=== PATIENT | male | born 1940 | race Caucasian/White ===

== ENCOUNTER 2017-03-13 17:33 | Emergency (ER) | payer OTHER, MEDICARE ==
[~2017-03-13] VITALS: Ht 180.3 cm; Wt 100.7 kg
--- NOTE | 2017-03-13 18:04 | ED AMS/SEIZURE/WEAK/DIZZY ---
See Addendum History of Present Illness General Chief Complaint: Dizziness Stated Complaint: DIZZINESS/WEAKNESS OUTSIDE DOING HOUSE WORK Source: patient Exam Limitations: no limitations Vital Signs & Intake/Output Vital Signs & Intake/Output Vital Signs Date Time Temp Pulse Resp B/P B/P Pulse O2 O2 Flow FiO2 Mean Ox Delivery Rate 03/135 98.0 63 18 130/63 98 Room Air 03/13 2049 98.2 67 18 121/67 99 Room Air 03/13 1827 99 Room Air 03/13 1815 78 16 146/77 99 Room Air 03/13 1744 97.3 80 18 110/72 94 Room Air Allergies Coded Allergies: Penicillins (UNKNOWN 03/13/17) latex (SKIN IRRITATION 03/13/17) Reconcile Medications Aspirin (Ecpirin) 325 MG TABLET.DR 1 TAB PO DAILY HEART/BLOOD (Reported) Atorvastatin Calcium (Lipitor) 20 MG TABLET 1 TAB PO DAILY CHOLESTEROL ( Reported) Cyanocobalamin/FA/Pyridoxine (Folgard Rx Tablet) (Unknown Strength) TABLET ( Unknown Dose) PO DAILY SUPPLEMENT (Reported) Fenofibrate 160 MG TABLET 1 TAB PO DAILY CHOLESTEROL/TRIGLYCERIDES (Reported) Lisinopril 2.5 MG TABLET 1 TAB PO DAILY BP (Reported) Metformin HCl 500 MG TABLET 1 TAB PO QPM DM (Reported) Metoprolol Succinate 50 MG TAB.ER.24H 1 TAB PO DAILY HEART/BP (Reported) Omeprazole 40 MG CAPSULE.DR 1 CAP PO DAILY GI (Reported) Oxycodone HCl/Acetaminophen (Percocet 10-325 MG Tablet) 10 MG-325 MG TABLET 0.5 TAB PO PRN PAIN (Reported) Triamterene/Hydrochlorothiazid (Triamterene-Hctz 37.5-25 MG Cp) 37.5 MG-25 MG CAPSULE 1 CAP PO DAILY BP (Reported) Zolpidem Tartrate (Ambien) 10 MG TABLET 0.5 TAB PO QPM SLEEP (Reported) Triage Note: 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 PT BEGAN TO HAVE SOB DIZZINESS AND WEAKNESS. PT STATES HE IS TIRED ALL THE TIME. PT REPORTS HAVING A FUNNY FEELING IN HIS THROAT. Triage Nurses Notes Reviewed? yes Onset: Gradual Duration: getting worse Timing: recent history Severity: severe Severity Numbers: 7 HPI: Patient is a 76-year-old male with a past medical history of type II well- controlled diabetes, hypertension, hyperlipidemia CAD status post quadruple bypass who presents emergency room with concerns of a 2-3 week history of generalized weakness fatigue the past week he has been complaining of intermittent shortness of breath and dizziness symptoms. Patient has just returned from [place] 1 week ago. Patient states that he has no exertional shortness of breath or dyspnea on exertion or chest pain however he does state that his chest "feels different" Patient denies any fever chills arm pain and jaw pain nausea vomiting leg swelling abdominal pain, hemoptysis cough. (ALINE STEWART) Past History Travel History Traveled to [place] past 21 day No Medical History Any Pertinent Medical History? see below for history EENT: cataracts Cardiovascular: hypertension, hyperlipidemia, QUADRUPAL BYPASS Gastrointestinal: GERD Surgical History Surgical History: non-contributory Psychosocial History What is your primary language Lao Tobacco Use: Never used ETOH Use: denies use Illicit Drug Use: denies illicit drug use Family History Hx Contributory? No (ALINE STEWART) Review of Systems Review of Systems Constitutional: Reports: see HPI, chills, malaise, weakness. EENTM: Reports: no symptoms. Respiratory: Reports: see HPI, short of breath. Cardiovascular: Reports: see HPI. Denies: chest pain. GI: Reports: no symptoms. Genitourinary: Reports: no symptoms. Musculoskeletal: Reports: no symptoms. Skin: Reports: no symptoms. Neurological/Psychological: Reports: no symptoms. Hematologic/Endocrine: Reports: no symptoms. Immunologic/Allergic: Reports: no symptoms. All Other Systems: Reviewed and Negative (ALINE STEWART) Physical Exam Physical Exam General Appearance: no apparent distress, alert, comfortable Comments: Well-developed well-nourished person in no acute distress HEENT: Normal EENT exam, extraocular motion intact, no nystagmus. Pupils equally round and reactive to light and accommodation. Nose is atraumatic. External auditory canal and Tympanic membranes clear. Pharynx normal. No swelling or edema. Neck: Supple, no lymphadenopathy, normal range of motion without pain or tenderness Back: Nontender, no CVA tenderness. Cardiovascular: Regular rate and rhythms no murmurs rubs or gallops, normal JVP Respiratory: Chest nontender. No respiratory distress.breath sounds clear to auscultation bilaterally Abdomen: Soft, nontender nondistended, no appreciable organomegaly. Normal bowel sounds. No ascites Extremity: No edema, no calf tenderness to palpation, normal and equal pulses. Neuro: Alert oriented x3, motor sensory normal, Skin: No appreciable rash on exposed skin, skin is warm and dry. Psych: Mood and affect is normal, memory and judgment is normal. Core Measures ACS in differential dx? Yes CVA/TIA Diagnosis: No Severe Sepsis Present: No Septic Shock Present: No (ZEESHAN VENCES,ALINE) Progress Differential Diagnosis: alcohol intoxication, anemia, benign positional vertigo, CVA/stroke, dehydration, drug intoxication, encephalitis, electrolyte imbalance, GI bleed, hypoglycemia, hypoxia, intracranial Hem., intracranial mass/tumor, labrynthitis, meningitis, Meniere's disease, migraine TAPIA, multiple sclerosis, pneumonia, postural hypotension, presyncope, post-traumatic vertigo, sepsis, seizure disorder, subarachnoid Hem., UTI/pyelo, vertebrobasilar insuff Plan of Care: Orders Procedure Date/time Status TROPONIN LEVEL 03/13 2324 Active EKG 03/13 2324 Active URINALYSIS 03/13 2107 Complete D-DIMER 03/13 2003 Complete BUN & CREATININE 03/13 2003 Complete Add-on Test (ER Only) 03/13 181 Active THYROID STIMULATING HORMONE 03/13 175 Complete THYROXINE 03/13 175 Complete TROPONIN LEVEL 03/13 174 Complete COMPREHENSIVE METABOLIC PANEL 03/13 1748 Complete CBC WITHOUT DIFFERENTIAL 03/13 1748 Complete EKG 03/13 1737 Active Laboratory Tests 03/13/17 2330: Troponin I Pending 03/13/17 2110: Urine Color YEL, Urine Clarity CLEAR, Urine pH 6.0, Ur Specific [place] 1.020, Urine Protein NEG, Urine Ketones NEG, Urine Nitrite NEG, Urine Bilirubin NEG, Urine Urobilinogen 0.2, Ur Leukocyte Esterase NEG, Ur Microscopic SEDIMENT EXAMINED, Urine RBC RARE, Urine Hemoglobin TRACE-INTACT H, Urine Glucose NEG 03/13/17 2019: Estimated GFR 49 L, BUN/Creatinine Ratio 17.9, D-Dimer < 200 03/13/17 1840: D-Dimer Cancelled 03/13/17 1755: Anion Gap 15, Estimated GFR 39 L, BUN/Creatinine Ratio 15.9, Glucose 133 H, Calcium 9.5, Total Bilirubin 0.5, AST 37, ALT 51, Alkaline Phosphatase 51, Troponin I < 0.01, Total Protein 7.5, Albumin 4.6, Globulin 2.9, Albumin/ Globulin Ratio 1.6, TSH 1.200, Thyroxine (T4) 8.1, CBC w Diff NO MAN DIFF REQ, RBC 4.45 L, MCV 88.8, MCH 30.5, RDW 14.5, MPV 7.9, Gran % 60.8, Lymphocytes % 26.5, Monocytes % 7.6, Eosinophils % 4.5, Basophils % 0.6, Absolute Granulocytes 4.6, Absolute Lymphocytes 2.0, Absolute Monocytes 0.6, Absolute Eosinophils 0.3, Absolute Basophils 0, PUBS MCHC 34.4 Patient on initial examination was in no apparent distress Patient had negative orthostatic and had unremarkable physical exam findings Patient does admit to only eating one "big meal" a day which patient does have concerns of mild elevation of creatinine function and concerns of dehydration. IV fluid resuscitation currently is been administered. Patient also admits to a recent prescription administration the past 3 weeks of Ambien which can also cause patient's symptoms of dizziness and fatigue After IV fluid resuscitation was administered patient had improvement of his creatinine function After 3 attempts of establishing a d-dimer value the lab dictate that it was unattainable which I discussed with patient risks and benefits of pulmonary embolism evaluation and CT angiogram and he advised he wanted to receive an angiogram for evaluation of pulmonary embolism 03/13/2017 10:20:33 PM it was noted to me that prior to patient establishing a CT angiogram that the d-dimer was resulted to be negative and less than 200. We confirm this verbally with lab number resulted test and it is confirmed that patient has negative d-dimer which essentially rules out pulmonary embolism. Patient now will establish a chest x-ray Patient also ambulated with my supervision down hallway noted to be 95% room air no symptoms had occurred no dizziness no breast or distress or shortness of breath. DR PARKS ADVISED PT TO RECEIVE 2ND SET OF TROPONIN AND EKG PT WILL BE HANDED OF TO HIM (ALINE STEWART) Diagnostic Imaging: Viewed by Me: Radiology Read. Radiology Impression: no acute abnormality, no fracture Initial ED EKG: NORMAL SINUS RHYTHM NOTED AT 73 BPM Hand-Off Endorsed To: CHEMA PARKS DO ([facility]) Endorsed Time: 2326 Pending: labs Comments: PATIENT: DODIE ABDUL PRESENT AGE: 76 PATIENT ACCOUNT NO: [id number] : 41 LOCATION: [facility] ORDERING PHYSICIAN: ALINE VENCES SERVICE DATE: 03/13/17 EXAM TYPE: RAD - XRY-CHEST XRAY, PA AND LATERAL EXAMINATION: XR CHEST CLINICAL INFORMATION: Shortness of breath COMPARISON: None TECHNIQUE: 2 views of the chest were obtained. FINDINGS: Sternotomy wires present. The cardiac silhouette mediastinum and pulmonary vascularity are normal. Lungs are clear. Mild spondylosis of the dorsal spine. IMPRESSION: No acute disease DICTATED BY: CATRINA BANDA MD DATE/TIME DICTATED:03/13/172251 FIELD APPLICATIONS SPECIALIST:PHU (ZEESHAN VENCES,ALINE) Departure Departure Disposition: HOME OR SELF CARE Condition: Stable Clinical Impression Primary Impression: Dehydration Secondary Impressions: Dizziness, Elevated creatine kinase, Shortness of breath Referrals: JONAS KRUEGER,MARCELLA Shah (PCP/Family) Additional Instructions: As discussed continue to drink plain water for hydration and begin eating a well healthy balanced diet. Please consider discontinuing the Ambien as this may BE CAUSING YOUR symptoms. Please follow up and establish on Thursday [facility] practice to establish a doctor. If symptoms worsen return to emergency room. Continue previous medication as directed Departure Forms: Customer Survey General Discharge Information (ALINE STEWART) PA/SOAKER SODA WORKER Co-Sign Statement Statement: ED Attending supervision documentation- [x] I saw and evaluated the patient. I have also reviewed all the pertinent lab results and diagnostic results. I agree with the findings and the plan of care as documented in the PA's/SOAKER SODA WORKER's documentation. [] I have reviewed the ED Record and agree with the PA's/SOAKER SODA WORKER's documentation. [] Additions or exceptions (if any) to the PAs/SOAKER SODA WORKER's note and plan are summarized below: [] (CHEMA PARKS DO)
[2017-03-13 18:15] LABS: ABSOLUTE BASOPHIL COUNT 0 /CUMM (0.0-0.2); ABSOLUTE EOSINOPHIL COUNT 0.3 /CUMM (0.0-0.7); ABSOLUTE GRANULOCYTE CT 4.6 /CUMM (1.4-6.5); ABSOLUTE MONOCYTE COUNT 0.6 /CUMM (0.10-0.60); BASOPHIL % 0.6 % (0.0-2.0); EOSINOPHIL % 4.5 % (0-5); GRANULOCYTE % 60.8 % (42.2-75.2); HEMATOCRIT 39.5 % (42-52); MEAN CORPUSCULAR HGB 30.5 PG (27.0-31.0); MEAN CORPUSCULAR HGB CONC 34.4 G/DL (33.0-37.0); MEAN CORPUSCULAR VOLUME 88.8 FL (80.0-94.0); MEAN PLATELET VOLUME 7.9 FL (7.4-10.4); PLATELET COUNT 307 /CUMM (130-400); RBC DISTRIBUTION WIDTH 14.5 % (11.5-14.5); RED BLOOD CELL CT 4.45 /CUMM (4.70-6.10); WHITE BLOOD CELL COUNT 7.5 /CUMM (4.8-10.8)
[2017-03-13] MEDS ORDERED: METFORMIN HCL500 M3 PO (19:56)
[2017-03-13] MEDS ORDERED: FOLGARD RX TAB1 EACH PO (19:57)
[2017-03-13] MEDS ORDERED: LIPITOR20 M2 PO (19:57)
[2017-03-13] MEDS ORDERED: METOPROLOL SUCC50 M2 PO (19:57)
[2017-03-13] MEDS ORDERED: OMEPRAZOLE40 M1 PO (19:58)
[2017-03-13] MEDS ORDERED: FENOFIBRATE160 M1 PO (19:58)
[2017-03-13] MEDS ORDERED: TRIAMTERENE-HC1 EAC3 PO (19:58)
[2017-03-13] MEDS ORDERED: LISINOPRIL2.5 M1 PO (19:59)
[2017-03-13] MEDS ORDERED: AMBIEN10 M1 PO (19:59)
[2017-03-13] MEDS ORDERED: PERCOCET 10-321 EACH PO (20:00)
[2017-03-13] MEDS ORDERED: ECPIRIN325 MG PO (20:00)
[2017-03-13 22:45] VITALS: BP 130/63
--- NOTE | 2017-03-13 22:59 | RADIOLOGY REPORT ---
EXAMINATION: XR CHEST CLINICAL INFORMATION: Shortness of breath COMPARISON: None TECHNIQUE: 2 views of the chest were obtained. FINDINGS: Sternotomy wires present. The cardiac silhouette mediastinum and pulmonary vascularity are normal. Lungs are clear. Mild spondylosis of the dorsal spine. IMPRESSION: No acute disease
== END 2017-03-14 00:18 ==
LOC: ERH 17:33
PROVIDERS: Emergency Medicine
DX: E86.0 Dehydration (principal); R06.02 Shortness of breath; R42 Dizziness and giddiness; R77.8 Other specified abnormalities of plasma proteins; E11.9 Type 2 diabetes mellitus without complications; I10 Essential (primary) hypertension; E78.5 Hyperlipidemia, unspecified
CPT/HCPCS: 81001; 93005; 93010; 96360; J7040

== ENCOUNTER 2018-06-10 18:04 | Inpatient (IN) | payer OTHER, MEDICARE ==
[2018-06-08 08:57] LABS: ABSOLUTE BASOPHIL COUNT 0 /CUMM (0.0-0.2); ABSOLUTE EOSINOPHIL COUNT 0.2 /CUMM (0.0-0.7); ABSOLUTE GRANULOCYTE CT 3.6 /CUMM (1.4-6.5); ABSOLUTE LYMPH COUNT 1.8 /CUMM (1.2-3.4); ABSOLUTE MONOCYTE COUNT 0.5 /CUMM (0.10-0.60); BASOPHIL % 0.6 % (0.0-2.0); GRANULOCYTE % 58.4 % (42.2-75.2); HEMATOCRIT 41.7 % (42-52); MEAN CORPUSCULAR HGB 29.7 PG (27.0-31.0); MEAN CORPUSCULAR HGB CONC 33.5 G/DL (33.0-37.0); MEAN CORPUSCULAR VOLUME 88.5 FL (80.0-94.0); MEAN PLATELET VOLUME 7.4 FL (7.4-10.4); PLATELET COUNT 302 /CUMM (130-400); RBC DISTRIBUTION WIDTH 13.9 % (11.5-14.5); RED BLOOD CELL CT 4.71 /CUMM (4.70-6.10); WHITE BLOOD CELL COUNT 6.2 /CUMM (4.8-10.8)
[~2018-06-10] VITALS: Ht 180.3 cm; Wt 102.1 kg
[~2018-06-10 18:04] MED LIST: AMBIEN10 M1 PO; ECPIRIN325 MG PO; FENOFIBRATE160 M1 PO; FOLGARD RX TAB1 EACH PO; LIPITOR20 M2 PO; LISINOPRIL2.5 M1 PO; METFORMIN HCL500 M3 PO; METOPROLOL SUCC50 M2 PO; OMEPRAZOLE40 M1 PO; PERCOCET 10-321 EACH PO; TRIAMTERENE-HC1 EAC3 PO
[2018-06-10 18:47] LABS: ABSOLUTE BASOPHIL COUNT 0 /CUMM (0.0-0.2); ABSOLUTE EOSINOPHIL COUNT 0.2 /CUMM (0.0-0.7); ABSOLUTE GRANULOCYTE CT 3.5 /CUMM (1.4-6.5); ABSOLUTE LYMPH COUNT 2.2 /CUMM (1.2-3.4); ABSOLUTE MONOCYTE COUNT 0.6 /CUMM (0.10-0.60); BASOPHIL % 0.6 % (0.0-2.0); EOSINOPHIL % 3.4 % (0-5); HEMATOCRIT 43.7 % (42-52); MEAN CORPUSCULAR HGB 29.6 PG (27.0-31.0); MEAN CORPUSCULAR HGB CONC 33.7 G/DL (33.0-37.0); MEAN PLATELET VOLUME 7.3 FL (7.4-10.4); PLATELET COUNT 338 /CUMM (130-400); RBC DISTRIBUTION WIDTH 14.3 % (11.5-14.5); RED BLOOD CELL CT 4.97 /CUMM (4.70-6.10); WHITE BLOOD CELL COUNT 6.5 /CUMM (4.8-10.8)
[2018-06-10] MEDS ORDERED: ASPIRIN EC81 M1 PO (18:53)
[2018-06-10] MEDS ORDERED: METFORMIN HCL500 M2 PO (18:54)
[2018-06-10] MEDS ORDERED: PRINIVIL5 M1 PO (18:54)
[2018-06-10] MEDS ORDERED: FISH OIL 1,001000 MG PO (18:55)
--- NOTE | 2018-06-10 19:27 | ED GI/GU/ABDOMINAL COMPLAINT ---
History of Present Illness General Chief Complaint: Nausea, Vomiting, Diarrhea Stated Complaint: "I'VE HAD +D FOR MONTHS" Source: patient, family, old records Exam Limitations: no limitations Vital Signs & Intake/Output Vital Signs & Intake/Output Vital Signs Date Time Temp Pulse Resp B/P B/P Pulse O2 O2 Flow FiO2 Mean Ox Delivery Rate 06/11 0640 97.7 62 20 132/68 96 06/11 0007 97.6 62 20 122/74 100 06/10 2217 97.9 64 20 115/63 97 Room Air 06/10 2027 97.9 66 20 113/56 95 Room Air 06/10 1843 98 Room Air 06/10 1822 99.0 84 18 97 Room Air Room Air ED Intake and Output 06/11 0000 06/10 1200 Intake Total 0 Output Total Balance 0 Intake, Oral 0 Patient 225 lb Weight Weight Bed scale Measurement Method Allergies Coded Allergies: Penicillins (UNKNOWN 03/13/17) latex (SKIN IRRITATION 03/13/17) Reconcile Medications Atorvastatin Calcium (Lipitor) 20 MG TABLET 1 TAB PO DAILY CHOLESTEROL ( Reported) Cyanocobalamin/FA/Pyridoxine (Folgard Rx Tablet) (Unknown Strength) TABLET ( Unknown Dose) PO DAILY SUPPLEMENT (Reported) Fenofibrate 160 MG TABLET 1 TAB PO DAILY CHOLESTEROL/TRIGLYCERIDES (Reported) Lisinopril (Prinivil) 5 MG TABLET 1 TAB PO DAILY BP (Reported) Metformin HCl (Metformin HCl ER) 500 MG TAB.ER.24 1 TAB PO BID DM (Reported) Metoprolol Succinate 50 MG TAB.ER.24H 1 TAB PO DAILY HEART/BP (Reported) [place]-3/Dha/Epa/Fish Oil (Fish Oil 1,000 MG Softgel) (Unknown Strength) CAPSULE (Unknown Dose) PO DAILY SUPPLEMENT (Reported) Omeprazole 40 MG CAPSULE.DR 1 CAP PO DAILY GI (Reported) Oxycodone HCl/Acetaminophen (Percocet 10-325 MG Tablet) 10 MG-325 MG TABLET 0.5 TAB PO PRN PAIN (Reported) Zolpidem Tartrate (Ambien) 10 MG TABLET 0.5 TAB PO QPM SLEEP (Reported) Triage Note: PT TO ED WITH C/O DIARRHEA FOR MONTHS, SEEN PMD FOR SYMPTOMS, DENIES N/V. Triage Nurses Notes Reviewed? yes Onset: 2 months Duration: continues in ED, getting worse Timing: recent history Quality/Severity: cramping, fullness, moderate Location: generalized abdomen Radiation: no radiation Activities at Onset: rest Prior Abdominal Problems: none Past Sexual History: Unobtainable at this time Modifying Factors: Worsens With: eating, palpation. Associated Symptoms: abdominal pain, diarrhea, fatigue, loss of appetite, weakness HPI: Several months prior to admission patient complains of frequent loose watery stool anorexia nausea increasing abdominal girth with pain. Pain is described as achy moderate to severe worse with eating palpation nonradiating constant. He denies fever chills vomiting chest pain cough shortness of breath headache dysuria rash bleeding. Past History Travel History Traveled to [place] past 21 day No Medical History Any Pertinent Medical History? see below for history Neurological: migraine EENT: cataracts Cardiovascular: hypertension, hyperlipidemia, QUADRUPAL BYPASS Respiratory: NONE Gastrointestinal: GERD Hepatic: NONE Renal: NONE Musculoskeletal: NONE Psychiatric: NONE Endocrine: diabetes Blood Disorders: anemia Cancer(s): NONE PHYSICAL METEOROLOGIST/Reproductive: NONE Surgical History Surgical History: non-contributory Psychosocial History What is your primary language Latvian Tobacco Use: Never used ETOH Use: denies use Illicit Drug Use: denies illicit drug use Family History Hx Contributory? No Review of Systems Review of Systems Constitutional: Reports: see HPI, malaise, weakness. EENTM: Reports: no symptoms. Respiratory: Reports: no symptoms. Cardiovascular: Reports: no symptoms. GI: Reports: see HPI, abdominal pain, bloating, diarrhea, distention, nausea. Genitourinary: Reports: no symptoms. Musculoskeletal: Reports: no symptoms. Skin: Reports: no symptoms. Neurological/Psychological: Reports: no symptoms. Hematologic/Endocrine: Reports: no symptoms. Immunologic/Allergic: Reports: no symptoms. All Other Systems: Reviewed and Negative Physical Exam Physical Exam General Appearance: well developed/nourished, alert, awake, moderate distress, obese Head: atraumatic, normal appearance Eyes: Bilateral: normal appearance, PERRL, EOMI, normal inspection. Ears, Nose, Throat, Mouth: hearing grossly normal, dry mucous membranes Neck: normal inspection, supple, full range of motion, normal alignment Respiratory: normal breath sounds, chest non-tender, no respiratory distress, quiet respiration, lungs clear Cardiovascular: regular rate/rhythm, normal peripheral pulses, norml femoral pulses equa Peripheral Pulses: 4+ carotid (R), 4+ carotid (L) Gastrointestinal: normal bowel sounds, soft, no organomegaly, distention, tenderness Rectal: normal inspection, normal rectal tone, no stool Male Genitals: normal genitalia Back: normal inspection, normal range of motion, no vertebral tenderness Extremities: normal range of motion, no ligament instability Neurologic/Psych: no motor/sensory deficits, awake, alert, oriented x 3, normal gait, normal mood/affect, production coordinator II-XII nml as tested Skin: intact, normal color, warm/dry Core Measures ACS in differential dx? No Sepsis Present: No Sepsis Focused Exam Completed? No Progress Differential Diagnosis: biliary colic, bowel obstruction, diverticulitis, gastritis, pancreatitis, PUD/GERD, SBO, UTI/pyelo Plan of Care: Orders Procedure Date/time Status Regular Diet 06/11 B Active PROTHROMBIN TIME 06/11 0600 Active CBC WITHOUT DIFFERENTIAL 06/11 0600 Active BASIC ELECTROLYTES PLUS BUN&CR 06/11 0600 Active Code Status 06/11 0241 Active URINALYSIS 06/10 2348 Active Weight 06/10 2335 Active Vital Signs 06/10 2335 Complete Teach/Educate 06/10 2335 Active Pain Treatment and Response 06/10 2335 Active Nutritional Intake, Monitor 06/10 2335 Active Isolation 06/10 2335 Active Intake & Output 06/10 2335 Complete Patient Care Conference 06/10 2335 Active Activity/Ambulation 06/10 2335 Complete Pathway - chart 06/10 2222 Active House Staff 06/10 2222 Active Patient Data 06/10 2222 Active FingerStick- Glucose 06/10 2222 Active Code Status 06/10 2222 Complete Patient Data 06/10 2152 Active OXYGEN SETUP (GEN) 06/10 214 Active Saline Lock 06/10 2143 Active Admit to inpatient 06/10 2143 Active Vital Signs 06/10 2143 Active Activity/Ambulation 06/10 2143 Complete Code Status 06/10 2143 Complete LACTIC ACID 06/10 2123 Complete Intake & Output 06/10 1843 Active TROPONIN LEVEL 06/10 1830 Complete PHOSPHORUS 06/10 1830 Complete MAGNESIUM 06/10 1830 Complete EKG 06/10 1824 Active CULTURE,STOOL 06/10 1823 Active OVA AND PARASITE ANTIGENS 06/10 182 Active C.DIFFICILE 06/10 1823 Active LIPASE 06/10 1823 Complete LACTIC ACID 06/10 1823 Complete COMPREHENSIVE METABOLIC PANEL 06/10 1823 Complete CBC WITHOUT DIFFERENTIAL 06/10 1823 Complete AMYLASE 06/10 1823 Complete Lab Add-on Test 06/10 UNK Active VTE Mechanical Prophylaxis 06/10 UNK Active Vital Signs 06/10 UNK Complete Activity/Ambulation 06/10 UNK Active Current Medications Sig/Abdi Start time Last Medication Dose Stop Time Status Admin Atorvastatin Calcium 20 MG 1700 06/11 1700 AC (Lipitor) Fenofibrate 145 MG DAILY 06/11 09 AC (Tricor) Lisinopril 5 MG DAILY 06/11 09 AC (Prinivil) Metoprolol Succinate 50 MG DAILY 06/11 09 AC (Toprol Xl) Omeprazole 40 MG DAILY AC 06/11 07 AC (Prilosec) Heparin Sodium 5,000 UNIT Q8 06/11 06 AC (Porcine) Trimethobenzamide HCl 200 MG TID PRN 06/11 0430 AC (Tigan) Acetaminophen 650 MG Q6P PRN 06/10 2230 AC (Tylenol) Insulin Aspart 0 TIDAC 06/10 223 AC (NovoLOG) Oxycodone/ 2 TAB Q6P PRN 06/10 2230 AC Acetaminophen (Percocet) Sodium Chloride 1,000 ML Q13H 06/10 2230 AC 06/11 (Normal Saline 0.9%) 06/11 1129 0100 Zolpidem Tartrate 5 MG QPM 06/10 2230 AC 06/11 (Ambien) 0113 Laboratory Tests 06/10/18 2131: Lactic Acid 1.6 06/10/18 1830: Anion Gap 14, Estimated GFR 59 L, BUN/Creatinine Ratio 20.0, Glucose 122 H, Lactic Acid 2.1, Calcium 10.0, Phosphorus 3.4, Magnesium 1.6, Total Bilirubin 0.3, AST 47, ALT 49, Alkaline Phosphatase 54, Troponin I < 0.01, Total Protein 8.0, Albumin 4.9, Globulin 3.1, Albumin/Globulin Ratio 1.6, Amylase 75, Lipase 204, CBC w Diff NO MAN DIFF REQ, RBC 4.97, MCV 88.0, MCH 29.6, MCHC 33.7, RDW 14.3, MPV 7.3 L, Gran % 53.0, Lymphocytes % 33.9, Monocytes % 9.1, Eosinophils % 3.4, Basophils % 0.6, Absolute Granulocytes 3.5, Absolute Lymphocytes 2.2, Absolute Monocytes 0.6, Absolute Eosinophils 0.2, Absolute Basophils 0 06/10/184: Troponin I Cancelled Microbiology 06/10 1823 STOOL: Cryptosporidium Antigen - COLB 06/10 1823 STOOL: Giardia Antigen (BALBINA) - COLB 06/10 1823 STOOL: Clostridium difficile Toxin A & B - COLB 06/10 1823 STOOL: Stool Culture - COLB Diagnostic Imaging: Viewed by Me: CT Scan. Discussed w/RAD: CT Scan. Radiology Impression: 1. Large enhancing mass involving the right kidney. This is highly suspicious for neoplasm. The mass appears to be invading into the right renal vein at the hilum. 2. Nonobstructive 1 mm stone lower pole of left kidney. 3. Diffuse fatty change of liver with mild hepatomegaly. Initial ED EKG: normal axis, normal intervals, normal p-waves, normal QRS complex, normal sinus rhythm, no ST T wave changes Prior EKG: unchanged Rhythm Strip: normal sinus rhythm Departure Departure Disposition: STILL A PATIENT Condition: Stable Clinical Impression Primary Impression: Renal cell cancer Referrals: Mattie KRUEGER,Alex Shah (PCP/Family) Departure Forms: Customer Survey General Discharge Information Admission Note Spoke With: Abraham Richardson MD Documentation of Exam: Documentation of any treatments & extenuating circumstances including Concerns Regarding Discharge (functional status, medication knowledge or non-compliance, living conditions, etc.) that warrant an admission rather than observation: Intervention radiology biopsy of renal cell mass oncology evaluation medication adjustment serial lab exam GI evaluation urology evaluation continuing care discharge planning.
--- NOTE | 2018-06-10 20:54 | CT SCAN REPORT ---
EXAMINATION: CT ABDOMEN AND PELVIS WITH CONTRAST CLINICAL INFORMATION: Abdominal pain. Diarrhea for 2 months. COMPARISON: Renal ultrasound 05/26/2017. CTA of the chest 03/13/2017 TECHNIQUE: Multidetector volumetric imaging was performed of the abdomen and pelvis following IV administration of 95 mL of Optiray 320 intravenous contrast. Sagittal and coronal reformatted images were obtained on the technologist's workstation. DLP: 835.83 mGy-cm FINDINGS: LUNG BASES: The visualized lung bases are unremarkable. Status post median sternotomy. LIVER, GALLBLADDER, AND BILIARY TREE: There is low attenuation of liver parenchyma due to fatty change. There is no focal liver lesion. There is no intrapelvic bile duct dilatation. The right lobe of liver measures 20 cm superior inferior, mild hepatomegaly. There are a few scattered calcified granuloma within the liver. The gallbladder is contracted. There is no bile duct dilatation. PANCREAS: Unremarkable. SPLEEN: There are multiple small calcified granuloma within the spleen. There is a small splenule at the anterior inferior splenic margin. ADRENAL GLANDS: Unremarkable. KIDNEYS AND URETERS: Right kidney: There is a mass in the right kidney. The mass involves the mid lower pole cortex and is extending into the joe. It is extending into the right renal vein. This mass is enhancing. The mass is highly suspicious of a neoplasm. It measures 6.9 x 3 x 4.7 cm of size. Left kidney: There is a nonobstructive stone in the lower pole of the left kidney measuring 1 x 0.6 x 0.5 cm. There is no ureteral stone. There is no hydronephrosis. BLADDER: Unremarkable. GASTROINTESTINAL TRACT: There are scattered diverticula sigmoid and left colon but there is no diverticulitis. There is no acute change of the bowel. No bowel obstruction. No bowel wall thickening or edema. There is a moderate volume of stool scattered in the colon. The appendix is not visualized. There is no inflammatory change of the mesentery. Small bowel loops are unremarkable. ABDOMINAL WALL: No significant hernia is appreciated. LYMPH NODES: Normal. VASCULAR: The right renal mass is invading into the right renal vein at the hilum, coronal image 62. There is scattered vascular calcifications of aorta and iliac arteries without aneurysm. PELVIC VISCERA: Prostate measures 4 cm transverse. OSSEOUS STRUCTURES: There is degenerative spondylosis of the spine with multilevel disc height narrowing and plate spurring and facet joint arthrosis. IMPRESSION: 1. Large enhancing mass involving the right kidney. This is highly suspicious for neoplasm. The mass appears to be invading into the right renal vein at the hilum. 2. Nonobstructive 1 mm stone lower pole of left kidney. 3. Diffuse fatty change of liver with mild hepatomegaly. This critical result was discussed with Dr. Bradshaw on 06/10/2018, 8:15 PM and it was ascertained that the content and urgency of the report was understood at the time of direct communication.
--- NOTE | 2018-06-10 21:58 | History & Physical ---
Deborah Ceballos 06/10/18 1813: General Information and HPI MD Statement: I have seen and personally examined DODIE ABDUL and documented this H&P. The patient is a 77 year old M who presented with a patient stated chief complaint of []. 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 He states the diarrhea is progressive in nature and he has about 2 episodes of non bloody diarrhea per day. He has associated nausea but denies vomiting. He has noticed decreased appetite with about 3-4lbs of weightloss. He also has increasing fatigue and abdominal pressure. Denies hematuria, chest pain, syncope, dizziness, SOB. He states he has had changes in urinary stream over the past year and saw a Financial Institution President in [place]: Dr. Barrett. Patient receives care from the following doctors: Pain management: Dr. Moore Cardiology: Dr. Foster PCP: Dr. Lancaster Of Note: patient underwent 'platelet phoresis one week ago under the direction of his pain management doctor. He was told he is not to have NSAIDS after this procedure. Allergies/Medications Home Med list Atorvastatin Calcium (Lipitor) 20 MG TABLET 1 TAB PO DAILY CHOLESTEROL ( Reported) Cyanocobalamin/FA/Pyridoxine (Folgard Rx Tablet) (Unknown Strength) TABLET ( Unknown Dose) PO DAILY SUPPLEMENT (Reported) Fenofibrate 160 MG TABLET 1 TAB PO DAILY CHOLESTEROL/TRIGLYCERIDES (Reported) Lisinopril (Prinivil) 5 MG TABLET 1 TAB PO DAILY BP (Reported) Metformin HCl (Metformin HCl ER) 500 MG TAB.ER.24 1 TAB PO BID DM (Reported) Metoprolol Succinate 50 MG TAB.ER.24H 1 TAB PO DAILY HEART/BP (Reported) [place]-3/Dha/Epa/Fish Oil (Fish Oil 1,000 MG Softgel) (Unknown Strength) CAPSULE (Unknown Dose) PO DAILY SUPPLEMENT (Reported) Omeprazole 40 MG CAPSULE.DR 1 CAP PO DAILY GI (Reported) Oxycodone HCl/Acetaminophen (Percocet 10-325 MG Tablet) 10 MG-325 MG TABLET 0.5 TAB PO PRN PAIN (Reported) Zolpidem Tartrate (Ambien) 10 MG TABLET 0.5 TAB PO QPM SLEEP (Reported) Past History Travel History Traveled to [place] past 21 day No Medical History Neurological: migraine EENT: cataracts Cardiovascular: hypertension, hyperlipidemia, QUADRUPAL BYPASS Respiratory: NONE Gastrointestinal: GERD Hepatic: NONE Renal: NONE Musculoskeletal: NONE Psychiatric: NONE Endocrine: diabetes Blood Disorders: anemia Cancer(s): NONE PROCUREMENT PROFESSIONAL/Reproductive: NONE Surgical History Surgical History: non-contributory Past Family/Social History Psychosocial History Where do you live? Home Who Do You Live With? spouse Services at Home: None Primary Language: Luxembourgish Smoking Status: Former Smoker (quit 1964) ETOH Use: denies use Illicit Drug Use: denies illicit drug use Sexual History Past Sexual History Unobtainable at this time Review of Systems Review of Systems Constitutional: Reports: unexplained weight loss (fatigue). EENTM: Reports: no symptoms. Cardiovascular: Reports: no symptoms. Respiratory: Reports: no symptoms. GI: Reports: diarrhea (abdominal pressure), nausea. Denies: vomiting. Genitourinary: Reports: no symptoms. Musculoskeletal: Reports: neck pain (chronic neck pain). Skin: Reports: no symptoms. Neurological/Psychological: Reports: no symptoms. Exam & Diagnostic Data Last 24 Hrs of Vital Signs/I&O Vital Signs Date Time Temp Pulse Resp B/P B/P Pulse O2 O2 Flow FiO2 Mean Ox Delivery Rate 06/11 0007 97.6 62 20 122/74 100 06/10 2217 97.9 64 20 115/63 97 Room Air 06/10 2027 97.9 66 20 113/56 95 Room Air 06/10 1843 98 Room Air 06/10 1822 99.0 84 18 97 Room Air Room Air Intake & Output 06/11 0800 06/11 0000 06/10 1600 Intake Total 0 Output Total Balance 0 Intake, Oral 0 Patient 225 lb Weight Weight Bed scale Measurement Method Physical Exam General Appearance Alert, Oriented X3, Cooperative, No Acute Distress Skin No Rashes Skin Temp/Moisture Exam: Warm/Dry HEENT Atraumatic, PERRLA Neck Supple Cardiovascular Regular Rate, Normal S1, Normal S2 Lungs Clear to Auscultation Abdomen Normal Bowel Sounds, Soft, No Tenderness, ventral hernia; appendectomy scar well healed Extremities No Cyanosis, No Edema, Normal Pulses Assessment/Plan Assessment: 77 year old male with PMH DM, HLD, HTN, 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 He states the diarrhea is progressive in nature and he has about 2 episodes of non bloody diarrhea per day. He has associated nausea but denies vomiting. He has noticed decreased appetite with about 3-4lbs of weightloss. He also has increasing fatigue and abdominal pressure. Denies hematuria, chest pain, syncope, dizziness, SOB. ED workup significant for CT abd/pelv: right renal mass with invasion of right renal vein. Patient to be admitted to the general medicine service for further care of the following: Problem List: 1. Dehydration 2. Diarrhea 3. Right renal mass Admission Data: VS T99.0 P84 RR18 BP113/56 Sat 97%RA Lab WBC 6.5 H/H 14.7/43.7 Plt 338 Na 138, K4.4 BUN/Cr 24/1.2. LFT's normal. Trop Negative Stool Ova/parasite and C-diff antigen pending CTabd/pelv: IMPRESSION: 1. Large enhancing mass involving the right kidney. This is highly suspicious for neoplasm. The mass appears to be invading into the right renal vein at the hilum. 2. Nonobstructive 1 mm stone lower pole of left kidney. 3. Diffuse fatty change of liver with mild hepatomegaly. #Dehydration-likely 2/2 chronic diarrhea and decreased appetite -IVF: NS @75cc/hr -monitor lytes #Diarrhea -stool cultures and antigens for C-diff pending -IVF hydration and monitor lytes including Na, K, Mg, and Phos #Right Renal Mass -Nephrology consult for further work up; place in AM #Chronic medical problems -continue home meds except Metformin-->sliding scale insulin -Patient takes ambien for sleep at night and will need this medication as he is a bit overwhelmed with news of CT findings DVT Prophylaxis: Heparin 5000units sub cu/ALPS/Ambulation Code Status: DNR/DNI As Ranked By This Provider Problem List: 1. Diarrhea 2. Renal mass, right Core Measures/Misc (07/12) Acute Coronary Syndrome ACS Diagnosis: No Congestive Heart Failure Congestive Heart Failure Diagnosis No Cerebrovascular Accident CVA/TIA Diagnosis: No VTE (View Protocol) VTE Risk Factors Age>40 No Mechanical VTE Prophylaxis d/t N/A MechProphylax Ordered No VTE Pharm Prophylaxis d/t NA PharmProphylax ordered Sepsis (View protocol) Sepsis Present: No If YES complete Sepsis Event Note If YES complete Sepsis Event Note Flavio Wolfe 06/11/18 0050: Core Measures/Misc (07/12) Sepsis (View protocol) If YES complete Sepsis Event Note If YES complete Sepsis Event Note Resident Review Statement Resident Statement: examined this patient, discussed with internet architect, agreed with internet architect, discussed with family, reviewed EMR data (avail), discussed with nursing , discussed with case mgmt, reviewed images, amended to note Other Findings: This is a 77-year-old male with past medical history significant for hypertension, hyperlipidemia, diabetes mellitus, GERD, insomnia, quadruple bypass in 2000, chronic neck pain status post plateletpheresis presented to the emergency room with chief complaint of abdominal pain, diarrhea for 2 months Patient reports ongoing abdominal pain associated with diarrhea for last 2 months. He denies any blood in stools. Denies recent use of antibiotics. Denies any sick contact or travel history. He reports being nauseous, however denies any vomiting. He stated that his abdominal pain was very mild with pressure-like sensation. Denied any fever, chills, flank pain, blood in urine. He also reported ongoing fatigue for last couple of months associated with 4 pound weight loss. He was seen by PCP last week, arranging for CAT scan abdomen. He quit smoking in 1964. Denied alcohol abuse, illicit drug abuse. Denied any upper respiratory tract symptoms, fever, chills, cough, chest pain, palpitations , short of breath, change in bladder or bowel habits. Vitals afebrile, heart rate 84, respiratory rate 18, blood pressure 113/56, saturating at 95 on ra. Exam as above Pertinent labs WBC 6.5, hemoglobin 14 and hematocrit 43, platelets 328. Sodium 138, potassium 4.4, BUN 24, creatinine 1.2 Patient received sodium chloride 1 L in the emergency room. EKG shows sinus rhythm, rate 71, no acute ST-T wave changes. CAT scan abdomen and pelvis 1. Large enhancing mass involving the right kidney. This is highly suspicious for neoplasm. The mass appears to be invading into the right renal vein at the hilum. 2. Nonobstructive 1 mm stone lower pole of left kidney. 3. Diffuse fatty change of liver with mild hepatomegaly. 1. Right-sided renal mass Patient presented with ongoing abdomen pain associated with the diarrhea, fatigue, weight loss for 2 months. He was seen by PCP as an outpatient, planning to get CAT scan abdomen. However given worsening symptoms he presented to the ER. CAT scan abdomen and pelvis was done which showed large enhancing mass involving the right kidney, invading into the right renal vein at hilum. Mass was 6.9x 3x 4.7 cm size. * Admitted to [facility] * Monitor vitals every shift * Monitor hemoglobin closely. Denies any gross hematuria * Follow-up urine analysis * Nephro consult in the a.m. * Please arrange for renal biopsy after talking to interventional radiologist in the a.m. * Conservative pain management 2. Prerenal azotemia Patient was found to have elevated BUN most likely from dehydration and diarrhea. * Lactic acid in normal limits * Continue fluids Chronic medical conditions Hyperlipidemia continue Lipitor 20 daily Hypertension continue lisinopril 5 mg and metoprolol succinate 50 daily Diabetes mellitus continue Accu-Cheks and NovoLog sliding scale. Hold metformin. GERD continue omeprazole 40 daily Insomnia continue zolpidem 5 mg daily Patient is full code Regular diet DVT prophylaxis subcu heparin Pain pathway ordered Tylenol and Percocet Debra [place] 06/11/18 2431: General Information and [facility] MD Statement: I have seen and personally examined FRANKODODIE and documented this H&P. The patient is a 77 year old M who presented with a patient stated chief complaint of [diarrhea and abdominal pain]. Source of Information: patient Allergies/Medications Allergies: Coded Allergies: Penicillins (UNKNOWN 03/13/17) latex (SKIN IRRITATION 03/13/17) Past History Medical History Neurological: migraine EENT: cataracts Cardiovascular: hypertension, hyperlipidemia Gastrointestinal: GERD Endocrine: diabetes Blood Disorders: anemia Past Family/Social History Psychosocial History Smoking Status: Former Smoker ETOH Use: denies use Illicit Drug Use: denies illicit drug use Review of Systems Review of Systems Constitutional: Reports: see HPI. Exam & Diagnostic Data Last 24 Hrs of Vital Signs/I&O Vital Signs Date Time Temp Pulse Resp B/P B/P Pulse O2 O2 Flow FiO2 Mean Ox Delivery Rate 06/11 0007 97.6 62 20 122/74 100 06/10 2217 97.9 64 20 115/63 97 Room Air 06/107 97.9 66 20 113/56 95 Room Air 06/10 1843 98 Room Air 06/10 1822 99.0 84 18 97 Room Air Room Air Intake & Output 06/11 0800 06/11 0000 06/10 1600 Intake Total 0 Output Total Balance 0 Intake, Oral 0 Patient 225 lb Weight Weight Bed scale Measurement Method Physical Exam General Appearance Alert, Oriented X3, Cooperative, No Acute Distress Skin No Rashes, No Breakdown Skin Temp/Moisture Exam: Warm/Dry Sepsis Skin Exam (color): Normal for Ethnicity HEENT Atraumatic, PERRLA, EOMI Neck Supple Lymphatic Axillary nl, Cervical nl Cardiovascular Regular Rate, Normal S1, Normal S2 Lungs Clear to Auscultation, Normal Air Movement Abdomen Normal Bowel Sounds, Soft, No Tenderness, ventral hernia; appendectomy scar well healed Neurological Normal Speech Extremities No Clubbing, No Cyanosis, No Edema, Normal Pulses Sepsis Peripheral Pulse Location: Dorsalis Pedis Sepsis Peripheral Pulse Exam: Normal Sepsis Cap Refill Exam: <2 Sec Last 24 Hrs of Labs/Randall: Laboratory Tests 06/10/182130: Lactic Acid 1.6 06/10/18 1830: Anion Gap 14, Estimated GFR 59 L, BUN/Creatinine Ratio 20.0, Glucose 122 H, Lactic Acid 2.1, Calcium 10.0, Phosphorus 3.4, Magnesium 1.6, Total Bilirubin 0.3, AST 47, ALT 49, Alkaline Phosphatase 54, Troponin I < 0.01, Total Protein 8.0, Albumin 4.9, Globulin 3.1, Albumin/Globulin Ratio 1.6, Amylase 75, Lipase 204, CBC w Diff NO MAN DIFF REQ, RBC 4.97, MCV 88.0, MCH 29.6, MCHC 33.7, RDW 14.3, MPV 7.3 L, Gran % 53.0, Lymphocytes % 33.9, Monocytes % 9.1, Eosinophils % 3.4, Basophils % 0.6, Absolute Granulocytes 3.5, Absolute Lymphocytes 2.2, Absolute Monocytes 0.6, Absolute Eosinophils 0.2, Absolute Basophils 0 06/10/18 1824: Troponin I Cancelled Microbiology 06/10 1823 STOOL: Cryptosporidium Antigen - ORD 06/10 1823 STOOL: Giardia Antigen (RANDALL) - ORD 06/10 1823 STOOL: Clostridium difficile Toxin A & B - ORD 06/10 1823 STOOL: Stool Culture - ORD Core Measures/Misc (07/12) Sepsis (View protocol) If YES complete Sepsis Event Note If YES complete Sepsis Event Note Attending MD Review Statement Attending Statement Attending MD Statement: examined this patient, discuss w/resident/PA/EVENT SALES ASSISTANT, agreed w/resident/PA/EVENT SALES ASSISTANT, reviewed EMR data (avail) Attending Assessment/Plan: This patient is a 77-year-old male with a significant past medical history for hypertension, hyperlipidemia, diabetes mellitus, GERD, insomnia, quadruple bypass in 2000, chronic neck pain status post platelet pheresis presented to the emergency room with chief complaint of abdominal pain, diarrhea for 2 months. Patient reports ongoing abdominal pain associated with diarrhea for last 2 months. He stated that his abdominal pain was very mild with pressure-like sensation. Upon evaluation in the emergency department the patient was noted to be afebrile, BUN 59, initial lactic acid 2.1 dropped to 1.6, CT ABD/PELV - Large enhancing mass involving the right kidney. This is highly suspicious for neoplasm. The mass appears to be invading into the right renal vein at the hilum. The patient is admitted to general medicine for new right kidney mass, abdominal pain and diarrhea. Nephrology consult and gentle hydration. FULL CODE.
[2018-06-11 00:07] VITALS: BP 122/74
[2018-06-11 06:40] VITALS: BP 132/68
--- NOTE | 2018-06-11 06:57 | PN- Housestaff ---
Gregg Gamboa 06/11/18 0657: Subjective Follow-up For: Chronic diarrhea Right renal mass possibly RCC Dehydration secondary to chronic diarrhea Hyperlipidemia Hypertension Diabetes mellitus GERD Insomnia Obesity Subjective: I saw the patient is morning, he was lying back in his bed, alert and oriented, in no acute distress. He did not report any major complaints overnight. He said that he has an abdominal pain 3 out of 10. He mentioned that 2 days ago he had one episode of dark stool with his diarrhea. He reports generalized weakness and fatigue for the past 2 months. He also reports nausea. He denies chills, fever, lightheadedness, dizziness, chest pain, shortness of breath. Review of Systems Constitutional: Reports: see HPI. Objective Last 24 Hrs of Vital Signs/I&O Vital Signs Date Time Temp Pulse Resp B/P B/P Pulse O2 O2 Flow FiO2 Mean Ox Delivery Rate 06/11 1451 97.7 73 20 130/80 96 Room Air 06/11 0848 71 120/64 06/11 0848 71 120/64 06/11 0800 96 Room Air 06/11 0640 97.7 62 20 132/68 96 06/11 0007 97.6 62 20 122/74 100 06/10 2217 97.9 64 20 115/63 97 Room Air 06/10 2027 97.9 66 20 113/56 95 Room Air 06/10 1843 98 Room Air 06/10 1822 99.0 84 18 97 Room Air Room Air Intake & Output 06/11 1600 06/11 0800 06/11 0000 Intake Total 530 0 Output Total 250 Balance -250 530 0 Intake, IV 430 Intake, Oral 100 0 Number 1 0 Bowel Movements Output, Urine 250 Patient 225 lb Weight Weight Bed scale Measurement Method Physical Exam General Appearance: Alert, Oriented X3, Cooperative, No Acute Distress Skin: No Rashes Skin Temp/Moisture Exam: Warm/Dry Sepsis Skin Exam (color): Normal for Ethnicity HEENT: Atraumatic, PERRLA Neck: Supple, No JVD, No thryomegaly Cardiovascular: Regular Rate, Normal S1, Normal S2 Lungs: Clear to Auscultation, Normal Air Movement Abdomen: Normal Bowel Sounds, Soft, Tenderness in LLQ, old scar in right inquinal area, para umbilical hernia, right sided firm nontender flank mass 10x10 cm palpated Neurological: Normal Gait, Normal Speech, Strength at 5/5 X4 Ext, Normal Tone, Sensation Intact Extremities: No Clubbing, No Cyanosis, No Edema, Normal Pulses, No Tenderness/ Swelling Assessment/Plan Assessment: Patient is 77-year-old male with past medical history of CAD status post CABG in 2000 (quadruple bypass), diabetes, hypertension, chronic neck pain presenting with chief complaint of abdominal pain and diarrhea for the past 2 months. Right Renal Mass: Patient on admission had a CT Abdomen/Pelvis which incidentally found a right renal mass extending to the right renal vein concerning for malignancy. Plan: The case was discussed verbally with nephrology and with the [facility] urology service that the patient would benefit from transfer for likely nephrectomy. Follow up CT Chest with IV Contrast was obtained upon request of accepting physician, Dr. Davidson (Urology) and Dr. Flores (Internal Medicine). Dehydration secondary to chronic diarrhea: Patient presented with 2 months of watery, nonbloody diarrhea. His diarrhea could be caused by production of somatostatin by the possible RCC, paraneoplastic syndrome. Plan: Patient was given IV fluids, stool cultures, ova and parasite and C. difficile were sent. Hyperlipidemia: Plan: Continued Lipitor 20 daily Hypertension Plan: Continued lisinopril 5 mg daily and metoprolol succinate 50 daily Diabetes mellitus: Plan: Continue Accu-Cheks and NovoLog sliding scale. Metformin was held. GERD: Plan: Continue omeprazole 40 daily Insomnia: Plan: Continue zolpidem 5 mg daily Obesity: The patient is a stable Problem List: 1. Renal mass, right 2. Renal cell cancer 3. Diarrhea 4. Dehydration Pain Ratin Pain Location: Abdomen Pain Goal: Decrease Pain Plan: Percocet as needed Tomorrow's Labs & Rationales: Not applicable Nabeel Luna MD 06/11/18 1750: Attending MD Review Statement Attending Statement Attending MD Statement: examined this patient, discuss w/resident/PA/[employer]W [employer]GE FUSER CIRCULAR, agreed w/resident/PA/[employer] FUSER CIRCULAR, discussed with family, reviewed EMR data (avail), discussed with nursing, discussed with case mgmt, reviewed images, amended to note Attending Assessment/Plan: The patient was seen and discussed with house staff. Due to concern regarding "seeding" tumor, will defer any IR biopsy. The patient will require nephrectomy (?robotic). Spoke with Urology at [facility] (Dr. Davidson) and Hospitalist (Dr. Ketan Flores) and will transfer to [facility] via [facility] for evaluation for surgical intervention. Concern regarding renal vein erosion secondary to tumor. Explained in detail to the patient and his family. CT of chest being done prior (no mets seen).
[2018-06-11 08:05] LABS: ABSOLUTE BASOPHIL COUNT 0 /CUMM (0.0-0.2); ABSOLUTE EOSINOPHIL COUNT 0.2 /CUMM (0.0-0.7); ABSOLUTE LYMPH COUNT 1.8 /CUMM (1.2-3.4); ABSOLUTE MONOCYTE COUNT 0.5 /CUMM (0.10-0.60); BASOPHIL % 0.7 % (0.0-2.0); EOSINOPHIL % 4.1 % (0-5); GRANULOCYTE % 54.2 % (42.2-75.2); HEMATOCRIT 39.1 % (42-52); MEAN CORPUSCULAR HGB 29.8 PG (27.0-31.0); MEAN CORPUSCULAR HGB CONC 33.3 G/DL (33.0-37.0); MEAN CORPUSCULAR VOLUME 89.3 FL (80.0-94.0); MEAN PLATELET VOLUME 7.5 FL (7.4-10.4); PLATELET COUNT 263 /CUMM (130-400); RBC DISTRIBUTION WIDTH 14.3 % (11.5-14.5); RED BLOOD CELL CT 4.38 /CUMM (4.70-6.10); WHITE BLOOD CELL COUNT 5.6 /CUMM (4.8-10.8)
[2018-06-11 08:25] LABS: PT 13.1 SEC (9.4-12.5)
--- NOTE | 2018-06-11 08:42 | PN- Student ---
Subjective Subjective: Pt seen and examined this morning. He had no acute events overnight and reports that he is handling news of his possible cancer well. He had no diarrhea overnight but had a loose BM this morning with abdominal pressure and diffuse bloating. The pt denies chest pain, SOB, flank pain, leg pain. His usual neck pain is improved today compared to most other days. Objective Objective: Vital Signs Date Time Temp Pulse Resp B/P B/P Pulse O2 O2 Flow FiO2 Mean Ox Delivery Rate 06/11 0848 71 120/64 06/11 0848 71 120/64 06/11 0800 96 Room Air 06/11 0640 97.7 62 20 132/68 96 06/11 0007 97.6 62 20 122/74 100 06/10 2217 97.9 64 20 115/63 97 Room Air 06/10 2027 97.9 66 20 113/56 95 Room Air 06/10 1843 98 Room Air 06/10 1822 99.0 84 18 97 Room Air Room Air Intake & Output 06/11 1600 06/11 0800 06/11 0000 Intake Total 530 0 Output Total 250 Balance -250 530 0 Intake, IV 430 Intake, Oral 100 0 Number 1 0 Bowel Movements Output, Urine 250 Patient 225 lb Weight Weight Bed scale Measurement Method Physical Exam Gen - NAD, comfortable, pleasant Psych - appropriate affect and mood Neuro - AOx4 HEENT - neck is supple with no lumps or masses, no thyromegaly, MMM, PERRLA CV - RRR no MRG Pulm - CTA BL Abd - obese, +BS, mild distension, nontender to palpation in all quadrants but some discomfort to palpation on LLQ, no splenomegaly, liver edge palpated 2cm below the costal margin Results Results: Laboratory Tests 06/11/18 0851: Urine Color YEL, Urine Clarity CLEAR, Urine pH 7.0, Ur Specific [place] 1.010, Urine Protein NEG, Urine Ketones NEG, Urine Nitrite NEG, Urine Bilirubin NEG, Urine Urobilinogen 0.2, Ur Leukocyte Esterase NEG, Ur Microscopic EXAM NOT REQUIRED, Urine Hemoglobin NEG, Urine Glucose NEG 06/11/18 0650: Anion Gap 11, Estimated GFR > 60, BUN/Creatinine Ratio 18.2, PT 13.1 H, INR 1.20 H, CBC w Diff NO MAN DIFF REQ, RBC 4.38 L, MCV 89.3, MCH 29.8, MCHC 33.3, RDW 14.3, MPV 7.5, Gran % 54.2, Lymphocytes % 32.4, Monocytes % 8.6, Eosinophils % 4.1, Basophils % 0.7, Absolute Granulocytes 3.0, Absolute Lymphocytes 1.8, Absolute Monocytes 0.5, Absolute Eosinophils 0.2, Absolute Basophils 0 06/10/18 2131: Lactic Acid 1.6 06/10/18 1830: Anion Gap 14, Estimated GFR 59 L, BUN/Creatinine Ratio 20.0, Glucose 122 H, Lactic Acid 2.1, Calcium 10.0, Phosphorus 3.4, Magnesium 1.6, Total Bilirubin 0.3, AST 47, ALT 49, Alkaline Phosphatase 54, Troponin I < 0.01, Total Protein 8.0, Albumin 4.9, Globulin 3.1, Albumin/Globulin Ratio 1.6, Amylase 75, Lipase 204, CBC w Diff NO MAN DIFF REQ, RBC 4.97, MCV 88.0, MCH 29.6, MCHC 33.7, RDW 14.3, MPV 7.3 L, Gran % 53.0, Lymphocytes % 33.9, Monocytes % 9.1, Eosinophils % 3.4, Basophils % 0.6, Absolute Granulocytes 3.5, Absolute Lymphocytes 2.2, Absolute Monocytes 0.6, Absolute Eosinophils 0.2, Absolute Basophils 0 06/10/18 1824: Troponin I Cancelled Microbiology 06/11 851 STOOL: Cryptosporidium Antigen - RECD 06/11 851 STOOL: Giardia Antigen (BALBINA) - RECD 06/11 851 STOOL: Clostridium difficile Toxin A & B - RES 06/11 851 STOOL: Stool Culture - RES Assessment/Plan Assessment: Pt is a 77YOM with PMH sig for DM, HTN, HLD, CAD s/p CABG x4 in 2000, chronic neck pain on percocet, anemia of undetermined etiology, and BL knee replacements who presented to the ED yesterday with 2mo of diarrhea daily with nausea, lower abdominal pressure, fatigue, and 3-4lb weight loss. The diarrhea was non bloody and asso with tenesmus but there was no burning or pain with defecation. The pt' s PCP Dr. Lancaster did a Cdiff antigen which was negative. Prior to the onset of the diarrhea, the pt took a short course of clindamycin for prophylaxis during a dental procedure. Other significant information: pt smoked cigarettes for a few years in the 1960s and now smokes 2-3 cigars per week. He denies sick contacts and travel outside of the [place]. On admission, the pt was vitally stable. Labs were unremarkable with normal electrolytes, LFTs, and Ca/phos/mag. CT A/P showed a large enhancing mass in the R kidney involving the R renal vein suspected to be malignancy. No mets were appreciated. Problem List/Plan 1. Renal Mass Pt's renal mass is suspicious for renal cell carcinoma. At this time, the pt will be transferred to [place] as standard of care for his condition is R nephrectomy. 2. Diarrhea Pt has diarrhea post a course of antibiotics concerning for community acquired Cdiff. It is more likely though that the pt's diarrhea is asso with renal cell carcinoma as a paraneoplastic syndrome. - pt is stable - f/u stool ova and parasite - f/u c diff 3. HTN, HLD, CAD, Neck Pain Stable. Continue outpatient therapy. - importantly the pt is not on any anticoagulants or antiplatelet therapies 4. Obesity Pt's BMI is 31.4 which can be categorized as obese. Diet: NPO DVT Proph: ALPS Code: Full
[2018-06-11] MEDS ORDERED: ASPIRIN81 M4 PO (14:06)
--- NOTE | 2018-06-11 14:10 | Patient Discharge Instructions ---
Discharge Instructions General Discharge Information You were seen/treated for: Diarrhea Renal Mass Special Instructions: Follow up with your pcp within 1 week of discharge Transfer to [facility]. Further instructions per [place] attending. Diet Recommended Diet: Heart Healthy Activity Full Activity/No Limits: No Activity Self Limited: Yes Acute Coronary Syndrome Inclusion Criteria At DC or during hospital stay patient has or had the following: ACS DIAGNOSIS No Discharge Core Measures Meds if any: Prescribed or Continued at Discharge Meds if any: NOT Prescribed or Continued at Discharge Congestive Heart Failure Inclusion Criteria At DC or during hospital stay patient has or had the following: CHF DIAGNOSIS No Discharge Core Measures Meds if any: Prescribed or Continued at Discharge Meds if any: NOT Prescribed or Continued at Discharge Cerebrovascular accident Inclusion Criteria At DC or during hospital stay patient has or had the following: CVA/TIA Diagnosis No Discharge Core Measures Meds if any: Prescribed or Continued at Discharge Meds if any: NOT Prescribed or Continued at Discharge Venous thromboembolism Inclusion Criteria VTE Diagnosis No VTE Type NONE VTE Confirmed by (Test) NONE Discharge Core Measures - Per Current guidelines, there needs to be overlap - treatment for the first 5 days of Warfarin therapy. - If discharged on Warfarin prior to 5 days of - overlap therapy, the patient will need to be - assessed for post discharge needs including - *Post discharge parental anticoagulation - *Warfarin and/or parental anticoagulation education - *Follow up date to check INR post discharge At least 5 days overlap therapy as Inpatient No Meds if any: Prescribed or Continued at Discharge Note: Overlap Therapy is Warfarin and Anticoagulant Meds if any: NOT Prescribed or Continued at Discharge
--- NOTE | 2018-06-11 14:13 | Discharge Summary ---
Visit Information Visit Dates Admission Date: 06/10/18 Discharge Date: 06/11/18 Hospital Course Course Attending Physician: Nabeel Luna MD Primary Care Physician: Alex Phelps MD Hospital Course: Patient is 77-year-old male with past medical history of CAD status post CABG in 2000 (quadruple bypass), diabetes, hypertension, chronic neck pain presenting with chief complaint of abdominal pain and diarrhea for the past 2 months. On admission: Vitals: afebrile, heart rate 84, respiratory rate 18, blood pressure 113/56, saturating at 95 on ra. Pertinent labs: WBC 6.5, hemoglobin 14 and hematocrit 43, platelets 328. Sodium 138, potassium 4.4, BUN 24, creatinine 1.2 EKG shows sinus rhythm, rate 71, no acute ST-T wave changes. Imaging: CAT scan abdomen and pelvis 1. Large enhancing mass involving the right kidney. This is highly suspicious for neoplasm. The mass appears to be invading into the right renal vein at the hilum. 2. Nonobstructive 1 mm stone lower pole of left kidney. 3. Diffuse fatty change of liver with mild hepatomegaly. Patient received 1L NS bolus and IV Tylenol x1 in the emergency room. Patient was admitted to the general medicine floor for management of the followin. Right Renal Mass Patient on admission had a CT Abdomen/Pelvis which incidentally found a right renal mass extending to the right renal vein concerning for malignancy. The case was discussed verbally with nephrology and with the [facility] service that the patient would benefit from transfer for likely nephrectomy. Follow up CT Chest with IV Contrast was obtained upon request of accepting physician, Dr. Davidson (Urology) and Dr. Flores (Internal Medicine). 2. Dehydration secondary to chronic diarrhea Patient presented with 2 months of watery, nonbloody diarrhea. Patient was given IV fluids, stool cultures, ova and parasite and C. difficile were sent. 3. Chronic conditions Hyperlipidemia continued Lipitor 20 daily Hypertension continued lisinopril 5 mg daily and metoprolol succinate 50 daily Diabetes mellitus continue Accu-Cheks and NovoLog sliding scale. Metformin was held. GERD continue omeprazole 40 daily Insomnia continue zolpidem 5 mg daily Allergies: Coded Allergies: Penicillins (UNKNOWN 03/13/17) latex (SKIN IRRITATION 03/13/17) Pertinent Lab Results: SERVICE DATE: 06/10/18-1824 EXAM TYPE: CAT - CT ABD & PELVIS W IV CONTRAST EXAMINATION: CT ABDOMEN AND PELVIS WITH CONTRAST CLINICAL INFORMATION: Abdominal pain. Diarrhea for 2 months. COMPARISON: Renal ultrasound 05/26/2017. CTA of the chest 03/13/2017 TECHNIQUE: Multidetector volumetric imaging was performed of the abdomen and pelvis following IV administration of 95 mL of Optiray 320 intravenous contrast. Sagittal and coronal reformatted images were obtained on the technologist's workstation. DLP: 835.83 mGy-cm FINDINGS: LUNG BASES: The visualized lung bases are unremarkable. Status post median sternotomy. LIVER, GALLBLADDER, AND BILIARY TREE: There is low attenuation of liver parenchyma due to fatty change. There is no focal liver lesion. There is no intrapelvic bile duct dilatation. The right lobe of liver measures 20 cm superior inferior, mild hepatomegaly. There are a few scattered calcified granuloma within the liver. The gallbladder is contracted. There is no bile duct dilatation. PANCREAS: Unremarkable. SPLEEN: There are multiple small calcified granuloma within the spleen. There is a small splenule at the anterior inferior splenic margin. ADRENAL GLANDS: Unremarkable. KIDNEYS AND URETERS: Right kidney: There is a mass in the right kidney. The mass involves the mid lower pole cortex and is extending into the joe. It is extending into the right renal vein. This mass is enhancing. The mass is highly suspicious of a neoplasm. It measures 6.9 x 3 x 4.7 cm of size. Left kidney: There is a nonobstructive stone in the lower pole of the left kidney measuring 1 x 0.6 x 0.5 cm. There is no ureteral stone. There is no hydronephrosis. BLADDER: Unremarkable. GASTROINTESTINAL TRACT: There are scattered diverticula sigmoid and left colon but there is no diverticulitis. There is no acute change of the bowel. No bowel obstruction. No bowel wall thickening or edema. There is a moderate volume of stool scattered in the colon. The appendix is not visualized. There is no inflammatory change of the mesentery. Small bowel loops are unremarkable. ABDOMINAL WALL: No significant hernia is appreciated. LYMPH NODES: Normal. VASCULAR: The right renal mass is invading into the right renal vein at the hilum, coronal image 62. There is scattered vascular calcifications of aorta and iliac arteries without aneurysm. PELVIC VISCERA: Prostate measures 4 cm transverse. OSSEOUS STRUCTURES: There is degenerative spondylosis of the spine with multilevel disc height narrowing and plate spurring and facet joint arthrosis. IMPRESSION: 1. Large enhancing mass involving the right kidney. This is highly suspicious for neoplasm. The mass appears to be invading into the right renal vein at the hilum. 2. Nonobstructive 1 mm stone lower pole of left kidney. 3. Diffuse fatty change of liver with mild hepatomegaly. SERVICE DATE: 06/11/18- EXAM TYPE: CAT - CT CHEST W IV CONTRAST EXAMINATION: CT CHEST WITH CONTRAST CLINICAL INFORMATION: Malignancy. COMPARISON: CT abdomen and pelvis 06/10/2018. TECHNIQUE: Multidetector volumetric CT imaging of the chest was obtained after the administration of 95 mL of Optiray 320 intravenous contrast without immediate adverse reactions. Axial MIP volume rendering provided. Sagittal and coronal reformatted images were obtained. DLP: 637 mGy-cm FINDINGS: LUNGS: Tiny 2 mm subpleural nodule at the right lung apex is most likely intercurrent lymph node or granuloma (series 4 image 95). Scarring in the lingula and the left lower lobe. No suspicious mass lesion. MEDIASTINUM: Median sternotomy with CABG. Normal caliber thoracic aorta. Three-vessel coronary artery calcium. No pericardial effusion. No mediastinal adenopathy. Calcified mediastinal lymph nodes consistent with prior granulomatous disease. PLEURA: There is no pleural effusion. No pleural mass or thickening. AXILLA: No lymphadenopathy. UPPER ABDOMEN: The known right renal mass is not included in the [id number]. Hepatic steatosis. Scattered granulomata in the liver and spleen. OSSEOUS STRUCTURES: Mild degenerative changes in the spine. IMPRESSION: Tiny 2 mm subpleural nodule at the right lung apex is most likely an intraparenchymal lymph node or granuloma. No convincing evidence of pulmonary metastatic disease. Calcified mediastinal lymph nodes and punctate calcifications in liver and spleen consistent with prior granulomatous disease. Disposition Summary Disposition Principal Diagnosis: Renal Mass Additional Diagnosis: Chronic Diarrhea Discharge Disposition: other general hospital Discharge Instructions General Discharge Information Code Status: Full Code Patient's Diet: NPO Patient's Activity: Self Limited Follow-Up Instructions/Appts: Follow up with PCP within 1 week of discharge Medications at Discharge Discharge Medications: Stop taking the following medications: Metformin HCl (Metformin HCl ER) 500 MG TAB.ER.24 ORAL TWICE DAILY Aspirin (Aspirin*) 81 MG TAB.CHEW ORAL DAILY Continue taking these medications: Metoprolol Succinate (Metoprolol Succinate) 50 MG TAB.ER.24H 1 Tablet ORAL DAILY Comments: Last Taken: 06/11/18 Time: 0848 Atorvastatin Calcium (Lipitor) 20 MG TABLET 1 Tablet ORAL DAILY Comments: Last Taken: 06/11/18 Time: 1557 Cyanocobalamin/FA/Pyridoxine (Folgard Rx Tablet) 1 MG-2.2 MG-25 MG TABLET 1 Tablet ORAL DAILY Comments: NOT GIVEN IN HOSPITAL Omeprazole (Omeprazole) 40 MG CAPSULE. 1 Capsule ORAL DAILY Comments: Last Taken: 06/11/18 Time: 0648 Fenofibrate (Fenofibrate) 160 MG TABLET 1 Tablet ORAL DAILY Comments: Last Taken: 06/11/18 Time: 0847 Zolpidem Tartrate (Ambien) 10 MG TABLET 0.5 Tablet ORAL Every night Comments: Last Taken: 06/11/18 Time: 0113 Oxycodone HCl/Acetaminophen (Percocet 10-325 MG Tablet) 10 MG-325 MG TABLET 0.5 Tablet ORAL as needed for PAIN Comments: Last Taken: 06/11/18 Time: 1730 Lisinopril (Prinivil) 5 MG TABLET 1 Tablet ORAL DAILY Comments: Last Taken: 06/11/18 Time: 0848 [place]-3/Dha/Epa/Fish Oil (Fish Oil 1,000 MG Softgel) (Unknown Strength) CAPSULE 1 Tablet ORAL DAILY Comments: NOT GIVEN IN HOSPITAL Copies To: Mattie KUREGER,Alex Shah Attending MD Review Statement Documenting Attending: Nabeel Luna MD Other Findings: The patient is to be transferred to [facility] to Hospitalist team (Dr. Ketan Flores) and will be seen by Urology (I spoke with Dr. Davidson) regarding potential right nephrectomy (?robotic). CT of chest done prior to tranfer is negative for metastases.
[2018-06-11 14:51] VITALS: BP 130/80
--- NOTE | 2018-06-11 15:47 | CT SCAN REPORT ---
EXAMINATION: CT CHEST WITH CONTRAST CLINICAL INFORMATION: Malignancy. COMPARISON: CT abdomen and pelvis 06/10/2018. TECHNIQUE: Multidetector volumetric CT imaging of the chest was obtained after the administration of 95 mL of Optiray 320 intravenous contrast without immediate adverse reactions. Axial MIP volume rendering provided. Sagittal and coronal reformatted images were obtained. DLP: 637 mGy-cm FINDINGS: LUNGS: Tiny 2 mm subpleural nodule at the right lung apex is most likely intercurrent lymph node or granuloma (series 4 image 95). Scarring in the lingula and the left lower lobe. No suspicious mass lesion. MEDIASTINUM: Median sternotomy with CABG. Normal caliber thoracic aorta. Three-vessel coronary artery calcium. No pericardial effusion. No mediastinal adenopathy. Calcified mediastinal lymph nodes consistent with prior granulomatous disease. PLEURA: There is no pleural effusion. No pleural mass or thickening. AXILLA: No lymphadenopathy. UPPER ABDOMEN: The known right renal mass is not included in the [id number]. Hepatic steatosis. Scattered granulomata in the liver and spleen. OSSEOUS STRUCTURES: Mild degenerative changes in the spine. IMPRESSION: Tiny 2 mm subpleural nodule at the right lung apex is most likely an intraparenchymal lymph node or granuloma. No convincing evidence of pulmonary metastatic disease. Calcified mediastinal lymph nodes and punctate calcifications in liver and spleen consistent with prior granulomatous disease.
[2018-06-11 17:34] VITALS: BP 130/80
== END 2018-06-11 17:55 | disposition short-term general hospital (02) | DRG 699 ==
LOC: ERH 18:04 → 2NA 21:43 → ERHI 21:43 → ENRESERV 22:14 → 2NA 23:18
PROVIDERS: Hospitalist; Internal Medicine; Physician Assistant Medical
DX: N28.89 Other specified disorders of kidney and ureter (principal); K92.1 Melena; R19.7 Diarrhea, unspecified; I25.10 Atherosclerotic heart disease of native coronary artery without angina pectoris; I10 Essential (primary) hypertension; Z95.1 Presence of aortocoronary bypass graft; E78.5 Hyperlipidemia, unspecified; E11.9 Type 2 diabetes mellitus without complications; G89.29 Other chronic pain; E86.0 Dehydration
CPT/HCPCS: 2NAP; 36415; 36592; 74177; 81003; 82436; 82570; 87015; 87045; 87328; 87329; 87899; 87899-59; 93005; 93010; 96374; J0131; J1644; J7042